=== PATIENT | male | born 1980 | race Caucasian/White ===

== ENCOUNTER 2022-08-19 10:09 | Day surgery (SDC) | payer OTHER, SELFPAY ==
[2022-08-19] VITALS (15 sets, daily range): BP systolic 112–156; BP diastolic 69–108; PULSE 72–98; RESP 14–20; TEMP 36.3–37.8; O2SAT 95–100; BMI 27.1
--- NOTE | 2022-08-19 12:17 | CRLHL7_ITS ---
For Patients: As a result of the Century Cures Act, medical imaging exams and procedure reports are released immediately into your electronic medical record. You may view this report before your referring provider. If you have questions, please contact your health care provider. Indication: Right lower quadrant pain times 12 hours, nausea Technique: Volumetric multidetector CT images of the abdomen and pelvis were obtained after the administration of intravenous contrast. 98 cc Isovue 370 low osmolar intravenous contrast Comparison: CT abdomen and pelvis July 19, 2018 Findings: The lung bases are clear. There is moderate hepatomegaly and hepatic steatosis. There is no focal abnormality. The portal vein is patent. The gallbladder is unremarkable without evidence of radiopaque calculus. There is no significant common biliary ductal dilatation or abrupt cut off. The spleen is normal in enhancement and size. There is mild thickening of the gastric antrum with minimal gastric mucosal hyperemia. The pancreas is normal in enhancement without significant atrophy. The adrenal glands are unremarkable. Cystic changes of the left kidney are appreciated with preserved corticomedullary differentiation. There is moderate stool seen throughout the colon with minimal distal colonic diverticulosis with mild nondistention versus thickening of the sigmoid colon. No overt pericolonic inflammatory changes. Minimal fluid is seen within the central small-bowel commensurate with mild enteritis. There is demonstration of cecal edema at the base of the appendix with a fluid-filled measuring 7.4 millimeters with moderate fluid distention measuring up to 5.7 millimeters. There is no significant mesenteric, retroperitoneal, or pelvic sidewall lymph nodes. The aorta is nonaneurysmal. There is no significant atherosclerotic disease appreciated. The solid pelvic viscera are grossly unremarkable. There is no free fluid or free air. The anterior abdominal wall is intact without significant hernias. The lumbar vertebral body heights are grossly maintained in satisfactory alignment without evidence of displaced fracture, lytic or blastic lesion. Impression: There is demonstration of moderate edema and inflammatory change of the cecum and base of the appendix with a dilated, fluid-filled appendix measuring up to 7.4 millimeters in greatest dimension with approximately 5.7 millimeters of fluid distension and mucosal hyperemia commensurate with likely early appendicitis changes. There is a somewhat decompressed appearing sigmoid colon with questionable mild thickening of the colon wall versus nondistention which may represent low-grade inflammatory change. Please note that all CT scans at this facility use dose modulation, iterative reconstruction, and/or weight-based dosing when appropriate to reduce radiation dose to as low as reasonably achievable. Dictated by Yemi Patel MD @ 08/19/2022 2:48:20 PM (Electronically Signed)
--- NOTE | 2022-08-19 12:21 | ED_ITS ---
HPI - General Adult General Chief complaint: Abdominal Pain Stated complaint: Abdominal Pain Time Seen by Provider: 08/19/22 12:11 Source: patient Mode of arrival: ambulatory Limitations: no limitations History of Present Illness HPI narrative: 42-year-old male coming in today complaining of right lower quadrant abdominal pain that started last night. Pain does not radiate. Movement makes it worse. Lying still makes it better. He feels very nauseated but has not vomited. He did eat a protein bar this morning at around 8:30 a.m. but has not felt hungry. She denies any fevers or chills. He states that he had a bowel movement earlier today and was normal. No blood in his stool or urine. No urinary symptoms such as increased frequency, urgency or dysuria. He denies any intra-abdominal surgeries in the past. He does have a history of ulcerative colitis, her is on injections every 2 months. Related Data Home Medications Medication Instructions Recorded Confirmed calcium carbonate 500 mg-vitamin 1 tab PO DAILY 08/19/22 08/19/22 D3 10 mcg (400 unit) tablet (Oyster Shell Calcium-Vitamin D3) intivial IVPB .every 8 weeks 08/19/22 Allergies Allergy/AdvReac Type Severity Reaction Status Date / Time No Known Drug Allergies Allergy Verified 08/19/22 10:31 Review of Systems Status of ROS: Reports: 10 or more systems reviewed and unremarkable except as noted in History and below PFSH [facility] Social History Smoking Status: Never smoker How often do you have a drink containing alcohol: monthly or less How many standard drinks containing alcohol do you have on a typical day: 1 or 2 AUDIT-C Alcohol total score: 1 Non-prescribed substance use: denies use Exam Narrative: Exam Narrative: Well-nourished well-developed patient in no acute distress. Alert and oriented. Answers questions appropriately. Mood and affect are appropriate. Thoughts are goal oriented and rational. No tangential or magical thinking noted. Patient speaks in full sentences without needing to catch their breath. HEENT: Normocephalic atraumatic. Pupils are equally round reactive to light. Extraocular muscles are intact. Conjunctivae are moist without any icterus noted. Moist mucous membranes. Posterior pharynx is normal. Neck is soft without any lymphadenopathy or thyromegaly. No masses are appreciated. Cardiovascular: Heart is regular rate and rhythm S1 and S2 are present without any murmurs. Lungs: Clear to auscultation bilaterally no wheezes rhonchi or rales are appreciated. Patient takes deep breaths without any discomfort. Abdomen: Soft and nondistended, non tympanic. He does have right lower quadrant tenderness and tenderness at McBurney's point. He has a negative Pickens sign. Mild suprapubic discomfort as well. Normal bowel sounds, no organomegaly appreciated. Extremities: Bilateral lower extremities are without edema. Normal DP and PT pulses. Skin: Well perfused without any obvious rashes. Const: Vital Signs, click to edit/add: Vital Signs - 24 hr 08/19/22 10:27 08/19/22 15:17 Temperature 97.5 F L 98.2 F Pulse Rate [Right Pulse Oximeter] 77 79 Respiratory Rate 16 20 Blood Pressure [Ri ght Upper Arm] 112/69 119/74 Pulse Oximetry 98 99 Oxygen Delivery Me thod Room Air Course Course Hospital Course: IV was established, labs were drawn. CBC was unremarkable. Chemistries were unremarkable. LFTs unremarkable. Urinalysis unremarkable. CRP elevated. Patient proceeded to abdominal CT which did show early appendicitis. Dr. Toribio was contacted and agreed to take the patient to the OR. Vital Signs Vital signs: Initial Vital Signs Temperature 97.5 F L 08/19/22 10:27 Temperature Source Temporal Artery Scan 08/19/22 10:27 Pulse Rate 77 08/19/22 10:27 Respiratory Rate 16 08/19/22 10:27 Blood Pressure 112/69 08/19/22 10:27 Blood Pressure Mean 83 08/19/22 10:27 Blood Pressure Position Sitting 08/19/22 10:27 Pulse Oximetry 98 08/19/22 10:27 Oxygen Delivery Method 08/19/22 10:27 Vital Signs Temperature 97.5 F L 08/19/22 10:27 Pulse Rate 77 08/19/22 10:27 Respiratory Rate 16 08/19/22 10:27 Blood Pressure 112/69 08/19/22 10:27 Pulse Oximetry 98 08/19/22 10:27 Oxygen Delivery Method 08/19/22 10:27 Temperature 98.2 F 08/19/22 15:17 Pulse Rate 79 08/19/22 15:17 Respiratory Rate 20 08/19/22 15:17 Blood Pressure 119/74 08/19/22 15:17 Pulse Oximetry 99 08/19/22 15:17 Oxygen Delivery Method 08/19/22 10:27 Medical Decision Making MDM Narrative Medical decision making narrative: 42-year-old male with appendicitis. Patient will proceed to same-day surgery for management. Lab Data Lab results reviewed: Yes I reviewed the patient's lab results Labs: Lab Results 08/19/22 08/19/22 08/19/22 Range/Units 12:25 12:40 12:40 WBC 10.34 (4.50-11.00) K/uL RBC 5.25 (4.30-5.90) m/uL Hgb 15.4 (13.5-17.5) gm/dL Hct 44.5 (37.0-53.0) % MCV 85 (80-100) fL MCH 29 (26-34) pg MCHC 35 (32-36) gm/dL RDW Coeff of [place] 12.3 (11.5-15.5) % Plt Count 237 (140-440) K/uL Neut % (Auto) 75.0 H (42.0-72.0) % Lymph % (Auto) 16.3 L (20-44) % [place] % (Auto) 7.3 (0.0-11.0) % Eos % (Auto) 1.0 (0.0-7.0) % Baso % (Auto) 0.3 (0.0-3.0) % Neut # (Auto) 7.80 H (1.7-7.0) K/uL Lymph # (Auto) 1.70 (0.90-2.90) K/uL [place] # (Auto) 0.80 (0.00-0.90) K/UL Eos # (Auto) 0.10 (0.00-0.50) K/uL Baso # (Auto) 0.03 (0.00-0.30) K/uL Abs Immat Gran (auto) 0.01 (0.00-0.30) K/uL Sodium (135-149) mmol/L Potassium (3.6-5.1) mmol/L Chloride (96-114) mmol/L Carbon Dioxide (20-32) mmol/L BUN (5-24) mg/dL Creatinine (0.5-1.5) mg/dL Estimated Creat Clear Estimated GFR ml/min Glucose (60-115) mg/dL Lactate (0.5-1.9) mmol/L Calcium (8.4-10.6) mg/dL Total Bilirubin (0.1-1.5) mg/dL Direct Bilirubin (0.0-0.5) mg/dL AST (12-35) U/L ALT (4-50) U/L Alkaline Phosphatase (40-150) U/L C-Reactive Protein (0.5-1.0) mg/dL Total Protein (6.0-8.3) g/dL Albumin (3.3-5.0) g/dL Lipase (23-300) U/L Urine Color Yellow (Yellow) Urine Appearance Clear (Clear) Urine pH 6.0 (5.0-8.5) Ur Specific [place] 1.015 (1.000-1.030) Urine Protein Negative (Negative) Urine Glucose (UA) Negative (Negative) Urine Ketones Negative (Negative) Urine Blood Trace-intact A (Negative) Urine Nitrite Negative (Negative) Urine Bilirubin Negative (Negative) Urine Urobilinogen 0.2 (0.2-1.0) Ur Leukocyte Esterase Negative (Negative) Urine RBC 0-2 (0-2) Urine WBC 0-2 (0-5) Ur Squamous Epith Cells None (None-Few) Urine Bacteria None (None) SARS-CoV-2 (PCR) Negative SARS-CoV-2 (Negative) Influenza Type A (PCR) Negative PCR FLU A (Negative) Influenza Type B (PCR) Negative PCR FLU B (Negative) 08/19/22 08/19/22 Range/Units 12:40 12:40 WBC (4.50-11.00) K/uL RBC (4.30-5.90) m/uL Hgb (13.5-17.5) gm/dL Hct (37.0-53.0) % MCV (80-100) fL MCH (26-34) pg MCHC (32-36) gm/dL RDW Coeff of [place] (11.5-15.5) % Plt Count (140-440) K/uL Neut % (Auto) (42.0-72.0) % Lymph % (Auto) (20-44) % [place] % (Auto) (0.0-11.0) % Eos % (Auto) (0.0-7.0) % Baso % (Auto) (0.0-3.0) % Neut # (Auto) (1.7-7.0) K/uL Lymph # (Auto) (0.90-2.90) K/uL [place] # (Auto) (0.00-0.90) K/UL Eos # (Auto) (0.00-0.50) K/uL Baso # (Auto) (0.00-0.30) K/uL Abs Immat Gran (auto) (0.00-0.30) K/uL Sodium 142 (135-149) mmol/L Potassium 4.0 (3.6-5.1) mmol/L Chloride 101 (96-114) mmol/L Carbon Dioxide 28 (20-32) mmol/L BUN 16 (5-24) mg/dL Creatinine 0.8 (0.5-1.5) mg/dL Estimated Creat Clear 134.72 Estimated GFR 115 ml/min Glucose 79 (60-115) mg/dL Lactate 0.8 (0.5-1.9) mmol/L Calcium 9.5 (8.4-10.6) mg/dL Total Bilirubin 1.0 (0.1-1.5) mg/dL Direct Bilirubin 0.1 (0.0-0.5) mg/dL AST 30 (12-35) U/L ALT 30 (4-50) U/L Alkaline Phosphatase 88 (40-150) U/L C-Reactive Protein 3.0 H (0.5-1.0) mg/dL Total Protein 8.8 H (6.0-8.3) g/dL Albumin 5.2 H (3.3-5.0) g/dL Lipase 19 L (23-300) U/L Urine Color (Yellow) Urine Appearance (Clear) Urine pH (5.0-8.5) Ur Specific [place] (1.000-1.030) Urine Protein (Negative) Urine Glucose (UA) (Negative) Urine Ketones (Negative) Urine Blood (Negative) Urine Nitrite (Negative) Urine Bilirubin (Negative) Urine Urobilinogen (0.2-1.0) Ur Leukocyte Esterase (Negative) Urine RBC (0-2) Urine WBC (0-5) Ur Squamous Epith Cells (None-Few) Urine Bacteria (None) SARS-CoV-2 (PCR) (Negative) Influenza Type A (PCR) (Negative) Influenza Type B (PCR) (Negative) Imaging Data CT scan - abdomen: Attestation: I have reviewed the pertinent imaging results. Radiologist's impression: Findings: The lung bases are clear. There is moderate hepatomegaly and hepatic steatosis. There is no focal abnormality. The portal vein is patent. The gallbladder is unremarkable without evidence of radiopaque calculus. There is no significant common biliary ductal dilatation or abrupt cut off. The spleen is normal in enhancement and size. There is mild thickening of the gastric antrum with minimal gastric mucosal hyperemia. The pancreas is normal in enhancement without significant atrophy. The adrenal glands are unremarkable. Cystic changes of the left kidney are appreciated with preserved corticomedullary differentiation. There is moderate stool seen throughout the colon with minimal distal colonic diverticulosis with mild nondistention versus thickening of the sigmoid colon. No overt pericolonic inflammatory changes. Minimal fluid is seen within the central small-bowel commensurate with mild enteritis. There is demonstration of cecal edema at the base of the appendix with a fluid- filled measuring 7.4 millimeters with moderate fluid distention measuring up to 5.7 millimeters. There is no significant mesenteric, retroperitoneal, or pelvic sidewall lymph nodes. The aorta is nonaneurysmal. There is no significant atherosclerotic disease appreciated. The solid pelvic viscera are grossly unremarkable. There is no free fluid or free air. The anterior abdominal wall is intact without significant hernias. The lumbar vertebral body heights are grossly maintained in satisfactory alignment without evidence of displaced fracture, lytic or blastic lesion. Impression: There is demonstration of moderate edema and inflammatory change of the cecum and base of the appendix with a dilated, fluid-filled appendix measuring up to 7.4 millimeters in greatest dimension with approximately 5.7 millimeters of fluid distension and mucosal hyperemia commensurate with likely early appendicitis changes. There is a somewhat decompressed appearing sigmoid colon with questionable mild thickening of the colon wall versus nondistention which may represent low-grade inflammatory change. Discharge Plan Discharge Patient Disposition: Pending Disposition
--- OUTSIDE RECORDS SUMMARY | 2022-08-19 12:25 | XMS_ITS | Encounter Summary ---
:1980 Author Organization [facility] Address [address] [place] [address] Care Team Providers Name Role Phone Unavailable Primary Care Provider Unavailable Reason for Visit Reason Comments Patient Education Encounter Details Date Type Department Care Team Description 11/13/2021 Clinical Communication Department of Sandy Daniels Education Infusion Therapy in [place], [place] Omar, R.N. [address] [place] [phone] Social History Tobacco Use Types Packs/Day Years Used Date Smoking Tobacco: Never Assessed Sex Assigned at Date Recorded Not on file documented as of this encounter Miscellaneous Notes Telephone Encounter - Regina Daniels M.S.N., R.N. - 11/13/2021 10:37 AM CONTAINER COORDINATOR SUBJECTIVE CHIEF COMPLAINT / REASON FOR CALL Patient Education Information Discussed Adolfo, my name is Omar Mullins, R.N., calling from [facility]. I am calling to share thatur coronavirus nasal swab came back positive for SARS-CoV-2, the virus that causes COVID-19. This means that you have COVID-19 and can spread it to others. You must isolate at home to?keep others safe and prevent the spread of the virus. There are a few COVID-19 treatment options that may be available to you, based on your past medical history and onset of symptoms. I will ask a few questions to determine what treatment options you mayqualify for. ??? Do you have symptoms of COVID-19? Yes, if so what date did they start 11/07/21 ??? Are you taking immunosuppressive treatment related to a solid organ transplant or hematopoietic stem cell transplant, or on anti-CD20 treatment (rituximab, ofatumumab, ocrelizumab, obinutuzumab)? Yes Patient takes Humira and has been on this for about 4 months for Ulcerative Colitis. ??? Are you requiring supplemental oxygen or an increase in oxygen if currently using oxygen therapy? No, If you are eligible for an IV treatment, your vital signs will be taken on the arrival for the infusion center. If you are found to be in need of oxygen due to COVID-19 then you will not be infused with a treatment for COVID-19 rather you will be referred to an urgent care or ED for evaluation ofworsening disease. ??? Have you previously tested positive for COVID-19 within the past 90 days? No Treatment Eligibility: This medication is sotrovimab and it is for the treatment of coronavirus disease 2019 (COVID-19). This medication has been recommended for you after review of your medical records by a multidisciplinary physician team. While most people do feel better in seven days, some people do develop serious respiratory complications which could lead to hospitalizations or even . In the next few minutes, I am going to give you more information about this medication to help you understand the possible risksand benefits of taking a monoclonal antibody infusion. It is your choice to receive a monoclonal antibody infusion or stop at any time. ??? Receiving a monoclonal antibody infusion may benefit certain people with COVID-19. ??? This may decrease your risk for hospitalization by 10% to 3% ??? This may decrease the duration of your symptoms by 2 days (from 8 days to 6 days) ??? You may be feeling well now or not that bad, however, you have been identified as someone who isat risk of developing worse symptoms, and this infusion is designed to prevent that and help you to continue feeling well. What is a monoclonal antibody infusion? These are investigational medicines used for the treatment of COVID-19. It can be used in peoplewho are: o Not in the hospital o Who do not have a new or increased oxygen requirement due to COVID-19 o Who have not previously tested positive for COVID-19 within the last 90 days o Age 12 and older o Have mild or moderate symptoms o Weigh equal or more than 88 pounds o AND who are at high risk for developing severe COVID-19 symptoms or being hospitalized. ??? Monoclonal antibodies are laboratory made proteins that mimic the immune system's ability to fight off harmful pathogens such as viruses. This medication is specifically directed against the COVID-19 spike protein, designed to block the virus' attachment and entry into human cells. I need to let you know that this medication is investigational because it is still being studied. The FDA has approved the use of this medication under an EUA while data is still being collected; but early studies suggest that it reduces the risk of hospitalization. The FDA's Emergency Use Authorization (EUA) has authorized people to receive monoclonal antibody infusions for the treatment of mild COVID-19. [facility] supports this treatment for certain people. Tell your healthcare provider about all of your medical conditions, including if you: ??? Have any allergies ??? Are or plan to become ??? Are or plan to breastfeed ??? Have any serious illnesses ??? Are taking any medications (prescription, zwod-hfb-zrhgksu, vitamins, and herbal products) How will I receive a monoclonal antibody infusion? Monoclonal antibodies are given to you through a vein in your arm over approximately 30 - 60 minutes. You will be observed for 1 hour after the infusion is complete to monitor for side effects. You will receive one dose of the monoclonal antibody infusion by IV infusion. What are the important possible side effects of monoclonal antibodies? The most commonly reported side effects in clinical studies have been nausea, diarrhea, dizziness, headache, itching and vomiting. Serious reactions such as allergic reactions or infusion reactions have occurred but are uncommon. Tell your health care provider right away if you have any of the following signs or symptoms of an allergic reaction: fever, chills, nausea, headache, shortness of breath, low blood pressure, wheezing, swelling of your lips face or throat, rash including hives, itching, muscle aches and dizziness. Because monoclonal antibody infusions are still being studied, not a lot of people have been given monoclonal antibody infusions yet, and it is possible that not all of the risks are known at this time. Serious and unexpected side effects may happen. Specific studies have not been conducted to address the possible risks that a monoclonal antibody infusion could interfere with your body's own ability to fight off a future infection of SARS-CoV-2 and/or whether it could reduce your body's immune response to a vaccine for SARS-CoV-2 . Talk to your healthcare provider if you have any questions including whether the risks of serious SARS-CoV-2 infection outweigh the potential risks of monoclonal antibody infusion. Patients who receive a monoclonal antibody infusion are still eligible for a COVID-19 vaccine. Patients who receive monoclonal antibody therapies are advised to delay COVID vaccination for 90 days after receiving the monoclonal therapy. Some patients have expressed concerns about disrupting their vaccine schedule by accepting the monoclonal therapy. We strongly recommend that patients offered monoclonal therapies not decline treatments due to concerns about interfering with vaccination schedules. The vaccine is not an effective treatment for an acute COVID infection but an infusion of monoclonalantibodies is and existing data shows that the risk of re- infection with COVID-19 within 90 days is low. CDC experts agree that the benefits of monoclonal therapies is greater than the risk of delaying vaccination. We wanted you to know that [facility] is encouraging you to treat the illness you have now, this will help you right away and extermination supervisor while still being eligible for the vaccine. We also strongly encourage you to get your flu vaccine this year once your isolation has ended and you are feeling well. Have you had a COVID-19 vaccine? Yes; if so what date? Lymbix 02/05 & 02/26 & 10/13/21; Thank you for sharing. I am still able to schedule your MAB infusion, but need to make sure you know that your next dose of the COVID-19 vaccine needs to be 90 days after your MAB infusion. I wanted to share with you that if you have completed your COVID 19 vaccine series and then test positive while being symptomatic you are eligible to receive MAB. MAB has been shown to benefit COVID-19 patients who have previously been vaccinated. I am happy to share with you that since August 2020 [facility] has infused over [id number],107 patients with a monoclonal antibody infusion across our [place] sites. I am sharing this because we havenot seen any serious side effects in the patients who choose to receive the infusion. The side effects that we are seeing are similar to patients who choose not to receive the medication at all. Patients have reported to us mild fever, diarrhea, chills for a short while, and/or hives. What other treatment choices are there? Like monoclonal antibody infusions, the FDA may allow for the emergency use of other medicines to treat people with COVID-19. Go to https://www.osjxb59wsrouacgemnrcmgoixh.nih.gov/ for information on the emergency use of other medicines that are not approved by FDA to treat people with COVID- 19. Your healthcare provider may talk with you about clinical trials you may be eligible for. It is your choice to be treated or not to be treated with a monoclonal antibody infusion. Should youdecide not to receive a monoclonal antibody infusion or stop it at any time, it will not change yourstandard medical care. How do I report side effects with monoclonal antibody infusion? Tell your healthcare provider right away if you have any urgent side effects. For non-urgent side effects or side effects that bothers you or does not go away please contact the care team coordinating your COVID care during business hours. This may be your primary care provider, your COVID care team or your remote monitoring nurse team, which ever is applicable after emergency care, if needed, has been reached. Report side effects to FDA MedWatch at www.fda.gov/medwatch, call 7-319-OFC-5982. How can I learn more? Ask your healthcare provider ??? Visit https://www.bipzq58uolgpxvzuwbxymhnxcd.nih.gov/ ??? Contact your local or state public health department Would you like to learn more about what an Emergency Use Authorization (EUA)?Yes; The [place] FDA has made these monoclonal antibody infusions available under an emergency access mechanism calledan EUA. The EUA is supported by a [place] of Health and Human Service (HHS) declaration that circumstances exist to justify the emergency use of drugs and biological products during the COVID-19 pandemic. What is the cost for this medication? The medication is provided to [facility] at no charge and there is no cost of the medication to youthe patient. Any associated costs with the infusion will be billed to the patient's insurance company. [employer] does not want cost to be a barrier to infusion so please let us know at your infusion if you need more information or are worried about cost being a barrier. If you are uninsured or underinsuredyou will still be able to receive this medication free of cost. Medication Interactions Please know that there has been a large review by pharmacists, and this medication is not likely to interfere with any normal medication patients may be taking. This is possible as your body processes this medication differently than standard prescription medications. Given how this medication helps your body it is better to receive this medication as soon as possible if you agree to the infusion. Please know that our team is offering and will provide you this treatment for COVID-19 as part of a larger team that is coordinating your overall care. If you have continued questions after your infusion or your symptoms get worse please reach out to the team coordinating your clinical care, either a COVID-19 focused team or your primary care provider's office. If you have a patient portal please look at your messages as there may be one awaiting your review from the clinical team coordinating your care. Do you agree/consent to receive this infusion? Yes; The following education has been completed in accordance with the FDA Emergency Use Authorization (EUA) requirements: Informed patient/caregiver thatmonoclonal antibody infusions are an unapproved drug that is authorized for use under this EUA. Informed patient/caregiver of alternatives to receiving authorized monoclonal antibody infusions The Fact Sheet for Patients, Parents and Caregivers will be provided to patient/caregiver at the [facility]. They are on day 6 or 7 from symptom onset. They are immune compromised or have received a transplantin the past. We discussed that [facility] recommends they receive treatment to prevent severe complications of COVID-19 and that they are candidates to receive Sotrovimab. If Sotrovimab is not available, Remdesivir is also an option. They are ELIGIBLE and AGREE to treatment with SOTROVIMAB and an order has been placed per nurse protocol. We discussed the risks, benefits and alternatives. They DO NOTmeet any exclusion criteria for Sotrovimab, including no current or recent hospitalization for COVID-19, no new or increasing oxygen requirements, and no hypersensitivity to Sotrovimab. Remote Patient Monitoring: System Calculated MASS Score: Monoclonal Antibody Screening Score (MASS) Total Points Current as of 3 days ago 4 0 - 3 Points: Low Risk 4 - 6 Points: Medium Risk >= 7 Points: High Risk No Change Details This score is used to evaluate patient risk of complications with COVID-19 infection Points Metrics 0 Age: 41 Current as of 3 days ago 0 Has Chronic Respiratory Disease: No Current as of 3 days ago 0 Has Diabetes: No Current as of 3 days ago 4 Patient is Immune Compromised/Transplant Patient: Yes Current as of 3 days ago 0 BMI: Not on file Current as of 3 days ago 0 Has CVD: No Current as of 3 days ago 0 Has Renal Disease (CKD 4 or 5, ESRD w/ Dialysis): No Current as of 3 days ago 0 Has Hypertension: No Current as of 3 days ago 0 : No Current as of 3 days ago Patient has a MASS >/= 4, has symptoms, not on new oxygen or needing an increased amount of oxygen, and has at least 5 days of isolation left.. Yes; You are eligible for a Remote Patient Monitoring program to assist with monitoring your symptoms and vital signs every day from home using a tablet and easy to use equipment. If you are interested in this treatment, a nurse from [facility] will becalling you to give you more information and gather your consent. Would you be interested in proceeding with this? No COVID-19 Isolation Beginning of isolation (day 0) is considered the start of onset of symptoms. Effective 10/18/21, the [facility] now recommends a minimum 5 day isolation for the general population who tests positive for COVID-19 and who are asymptomatic or with symptoms that are resolving (without a fever for 24 hours), followed by 5 days of wearing a mask when around others to minimize the risk of infecting people they encounter. Individuals who are immune compromised should isolate for a minimum of 10 days. An individual must, at a minimum, follow the isolation and quarantine requirements outlined by [facility] public health department. All isolation periods are for a minimum number of days, and patients must still meet criteria of being fever free and having improving symptoms for 24hour prior to ending home isolation. The patient may end home isolation when they meet the following criteria: ??? They have met the minimum days of the recommended isolation period (day 0 is day of symptom onset OR date of positive test if they never had symptoms) ??? They have been afebrile at least 24 hours without the use of fever reducing medications ??? Their symptoms are improving Thank you for your time today. The results of this call will be shared with members of your care team. PLAN Disposition/Recommendation: self-care is appropriate at this time, patient encouraged to call back with questions Information/Education: patient/caller able to teach back Caller agreeable to plan of care: yes The following references were used: nursing clinical judgement and patient education resources: Monoclonal antibody therapy AINER COORDINATOR documented in this encounter Plan of Treatment Not on filedocumented as of this encounter Visit Diagnoses Diagnosis COVID-19 Infection - Primary documented in this encounter Additional Health Concerns Infection Onset Date Last Indicated Resolved Time [id number]: Symptom onset 11/10/2021 11/10/2021 5:35 AM CONTAINER COORDINATOR 11/07/2021 documented as of this encounter
--- OUTSIDE RECORDS SUMMARY | 2022-08-19 12:25 | XMS_ITS | Encounter Summary ---
:1980 Author Organization [facility] Address [address] [place] [address] Care Team Providers Name Role Phone Unavailable Primary Care Provider Unavailable Reason for Visit Episode Based Medications (Routine) - Closed Specialty Diagnoses / Procedures Referred By Contact Refer red To Contact Diagnoses COVID-19 Infection Jose Velarde [facility] Inf Jose Cruz Keller M.D. [address] [place] [address] [place], [place] [phone] Referral ID Status Reason Start Date Expiration Date Visits Requ ested Visits Authorized [id number] Closed 11/13/2021 11/13/2022 1 1 Encounter Details Date Type Department Care Team Description 11/14/2021 Infusion Department of Infusion Jose Velarde [facility]-[place] Infection Therapy in [facility] Castillo Keller (Primary Dx) [address] [place] [phone] Social History Tobacco Use Types Packs/Day Years Used Date Smoking Tobacco: Never Assessed Sex Assigned at Date Recorded Not on file documented as of this encounter Last Filed Vital Signs Vital Sign Reading Time Taken Comments Blood Pressure 114/66 11/14/2021 11:31 AM LEARNING AND DEVELOPMENT OFFICER Pulse 68 11/14/2021 11:31 AM LEARNING AND DEVELOPMENT OFFICER Temperature 36.8 ??C (98.2 ??F) 11/14/2021 11:31 AM LEARNING AND DEVELOPMENT OFFICER Respiratory Rate 16 11/14/2021 11:31 AM LEARNING AND DEVELOPMENT OFFICER Oxygen Saturation 100% 11/14/2021 11:31 AM LEARNING AND DEVELOPMENT OFFICER Inhaled Oxygen Concentration - - Weight - - Height - - Body Mass Index - - documented in this encounter Plan of Treatment Not on filedocumented as of this encounter Visit Diagnoses Diagnosis COVID-19 Infection - Primary documented in this encounter Administered Medications Inactive Administered Medications - up to 3 most recent administrations Medication Order MAR Action Action Date Dose Rate Site NaCl 0.9% infusion New Bag 11/14/2021 12:00 PM 160 mL/hr 160 mL/hr 10-250 mL/hr, intravenous, LEARNING AND DEVELOPMENT OFFICER As needed, Post Medications (Hazardous/Low Fluid Volume), Starting on 11/14/21 at 1127, Infuse at the same rate as the medication until tubing cleared of medication, then discard. sodium chloride 0.9 % injection 3 mL Given 11/14/2021 12:12 PM LEARNING AND DEVELOPMENT OFFICER 3 mL 3 mL, intra-catheter, As needed, line care, Starting on Mon11/14/21 at 1127, Prior to and following infusion and between multiple consecutive infusions. Given 11/14/2021 11:38 AM LEARNING AND DEVELOPMENT OFFICER 3 mL sotrovimab 500 mg IVPB in NaCl 0.9% 58 mL 500 New Bag 11/14/19 500 mg 116 mL/hr mg 11:39 AM LEARNING AND DEVELOPMENT OFFICER 500 mg, intravenous, at 116 mL/hr, Administer over 30 Minutes, Once, On 11/14/21 at 1130, For 1 dose, Patient/caregiver factsheet: https://www.fda.gov/media/449467/download *Refrigerate* Do not shake. Prior to the infusion, gently rock the infusion bag back and forth by hand 3 to 5 times. Do not invert the infusion bag. Avoid forming air bubbles. Nursing to attach and prime infusion set with in-line or add-on 0.2 micron polyethersulfone (PES) filter. Flush with NaCl 0.9% after infusion., Authorizing Prescriber Service: Daphne, Criteria: Adults and pediatric patients (age 12-17 years and weighing at least 40 kg), Indication of use: Outpatient or observation patient: Mild to moderate COVID-19 treatment, AND meeting at least one of the following: Immunosuppressive disease or immunosuppressive treatment documented in this encounter Additional Health Concerns Infection Onset Date Last Indicated Resolved Time [id number]: Symptom onset 11/10/2021 11/10/2021 5:35 AM LEARNING AND DEVELOPMENT OFFICER 11/07/2021 documented as of this encounter
--- OUTSIDE RECORDS SUMMARY | 2022-08-19 12:25 | XMS_ITS | Encounter Summary ---
:1980 Author Organization [facility] Address [address] [place] [id number] Care Team Providers Name Role Phone Unavailable Primary Care Provider Unavailable Reason for Visit Reason Comments Patient Education Encounter Details Date Type Department Care Team Description 11/13/2021 Clinical Communication Department of Sandy Daniels Infusion Therapy in [place], [place] Omar, R.N. [address] [place] [address] Social History Tobacco Use Types Packs/Day Years Used Date Smoking Tobacco: Never Assessed Sex Assigned at Date Recorded Not on file documented as of this encounter Miscellaneous Notes Telephone Encounter - Regina Daniels M.S.N., R.N. - 11/13/2021 10:12 AM CHEMICAL PLANT OPERATOR SUPERVISOR Attempted to contact patient to discuss potential treatment options for COVID- 19; Left Message for patient to call the Infusion Therapy Center at [phone]. ICAL PLANT OPERATOR SUPERVISOR documented in this encounter Plan of Treatment Not on filedocumented as of this encounter Visit Diagnoses Not on filedocumented in this encounter Additional Health Concerns Infection Onset Date Last Indicated Resolved Time [id number]: Symptom onset 11/10/2021 11/10/2021 5:35 AM CHEMICAL PLANT OPERATOR SUPERVISOR 11/07/2021 documented as of this encounter
--- OUTSIDE RECORDS SUMMARY | 2022-08-19 12:25 | XMS_ITS | Encounter Summary ---
:1980 Author Organization [facility] Address [address] [place] [address] Care Team Providers Name Role Phone Unavailable Primary Care Provider Unavailable Encounter Details Date Type Department Care Team Description 05/23/2017 Hospital Encounter [facility]X [facility] Ania John M.D., M.P.H. [address] [place] [address] (Wo rk) Social History Tobacco Use Types Packs/Day Years Used Date Smoking Tobacco: Never Assessed Sex Assigned at Date Recorded Not on file documented as of this encounter Plan of Treatment Not on filedocumented as of this encounter Visit Diagnoses Not on filedocumented in this encounter
--- OUTSIDE RECORDS SUMMARY | 2022-08-19 12:25 | XMS_ITS | Clinical Summary ---
:1980 Author Organization [facility] [place] [address] Care Team Providers Name Role Phone Pcp, No Primary Care Provider Unavailable Allergies No known active allergies Medications Medication Sig Dispensed Refills Start Date End Date Status adalimumab 40 mg/0.4 Every 2 Weeks 0 Active mL sykt balsalazide (COLAZAL) Take 3 Capsules by 0 1 Active 750 mg capsule mouth 2 times daily. dicyclomine (BENTYL) TAKE ONE TABLET BY 0 11/04/2021 Active 20 mg tablet MOUTH TWICE A DAY (FIRST THING IN THE MORNING AND BEFORE BED) predniSONE (DELTASONE) TAKE 8 TABLETS BY 0 2 Active 5 mg tablet MOUTH DAILY FOR 7 DAYS, THEN 6 TABLETS DAILY FOR 7 DAYS, THEN 4 TABLETS DAILY FOR 7 DAYS, THEN DECREASE BY ONE TABLET ANITHA Active Problems Not on file Immunizations Name Administration Dates Next Due AMB Influenza, IIV3 (Age >=3 years)(Flu Clinic Only) 011, 08/27/2010 Influenza, IIV3 (Age >=3 years) 09/03/2007 Social History Tobacco Use Types Packs/Day Years Used Date Never Smoker Smokeless Tobacco: Never Used Tobacco Cessation: Counseling Given: Yes Alcohol Use Standard Drinks/Week Comments Yes 0 (1 standard drink = 0.6 oz pure alcoho l) Sex Assigned at Date Recorded Not on file Obstetrics History Last Filed Vital Signs Vital Sign Reading Time Taken Comments Blood Pressure 106/58 12/16/2021 9:12 AM 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 manual cu ff Pulse 75 12/16/2021 9:12 AM 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 Temperature 36.8 ??C (98.2 ??F) 07/22/2009 6:27 PM CDT Respiratory Rate 16 07/22/2009 6:27 PM CDT Oxygen Saturation 99% 12/16/2021 9:12 AM 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 Inhaled Oxygen Concentration - - Weight 84.4 kg (186 lb) 12/16/2021 9:12 AM 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 Height - - Body Mass Index - - Plan of Treatment Health Maintenance Due Date Last Done Comments Tdap 1993 Depression screening for age 12+ 1994 BMI (ht and wt on same day) for age 0907/16/2000 18+ Hepatitis C screening for age 18-79 2000 Tetanus booster 2002 Lipids for age 35-44 2017 COVID-19 vaccine series (4 - Booster 12/08/2021 10/13/2021, 02/26/2021, for Pfizer series) 02/05/2021 Influenza for age 9-49 06/23/2022 08/30/2011, 08/27/2010, 09/03/2007 Results Not on filefrom Last 3 Months Insurance Payer Benefit Plan / Subscriber ID Effective Dates Phone Addre ss Type Group WC WORKERS COMP WC ROSE [id number] 2020-Prese [address] [place] [address] [facility] [id number] 2021-Presen [address] [place] [address] Ajith Shelby Workers Comp Self 1980 [address] (Home) [place] [facility] [place] [address] Care Teams Industrial Eng Relationship Specialty Start Date End Date Pcp, No PCP - General 12/03/15 .
--- OUTSIDE RECORDS SUMMARY | 2022-08-19 12:25 | XMS_ITS | Clinical Summary ---
:1980 Author Organization [facility] Address [address] [place] [address] Care Team Providers Name Role Phone Unavailable Primary Care Provider Unavailable Source Comments Patient records contain information from all sites at [facility]. For routine questions regarding patient records, call [phone] during business hours, M-F 8:00 AM - 5:00 PM Central Time. Record requests for emergency care only can be directed to [phone] at any time.[facility] Allergies No known active allergies Medications Medication Sig Dispensed Refills Start Date End Date Status dicyclomine (BENTYL) TAKE ONE TABLET BY 0 11/08/2021 Active 20 mg tablet MOUTH TWICE A DAY (FIRST THING IN THE MORNING AND BEFORE BED) Anton,CF, Pen 40 0 09/23/2021 A ctive mg/0.4 mL injection Active Problems Problem Noted Date COVID-19 Infection 11/13/2021 Immunizations Name Administration Dates Next Due DTP 05/23/1998, 02/02/1986, 01/25/1983, 05/1983, 1980 DTaP (Infanrix, [employer]) 01/16/2008 HepB, Unspecified 09/06/2001, 04/05/2001, 03/08/2001 Influenza, Unspecified 09/03/2007, 08/12/2005 MMR 02/07/1995, 10/21/1983 Social History Tobacco Use Types Packs/Day Years Used Date Smoking Tobacco: Never Assessed Sex Assigned at Date Recorded Not on file Last Filed Vital Signs Vital Sign Reading Time Taken Comments Blood Pressure 114/66 11/14/2021 11:31 AM SOCIAL WORKER PALLIATIVE CARE Pulse 68 11/14/2021 11:31 AM SOCIAL WORKER PALLIATIVE CARE Temperature 36.8 ??C (98.2 ??F) 11/14/2021 11:31 AM SOCIAL WORKER PALLIATIVE CARE Respiratory Rate 16 11/14/2021 11:31 AM SOCIAL WORKER PALLIATIVE CARE Oxygen Saturation 100% 11/14/2021 11:31 AM SOCIAL WORKER PALLIATIVE CARE Inhaled Oxygen Concentration - - Weight - - Height - - Body Mass Index - - Plan of Treatment Health Maintenance Due Date Last Done Comments HIV Screening 1980 Hepatitis C Screening 1980 Lipid (Cholesterol) 1980 Screening Pneumococcal vaccine (0-64 1988 years) (1 - PCV) Depression Screening 10/23/2021 (Annual PHQ-2) COVID-19 Vaccine (4 - 12/08/2021 10/13/2021, 02/26/2021, Booster for Pfizer series) 02/05/2021 Influenza Vaccine (#1) 2022 10/02/2021, 08/26/2020, 08/30/2011, Additional history exists DTaP,Tdap,and Td Vaccines 03/22/2028 03/22/2018, 01/16/2008 , (8 - Td or Tdap) 01/16/2008, Additional history exists Hepatitis B Vaccines Completed 09/06/2001, 09/06/2001, 04/05/2001, Additional history exists HPV Vaccines Aged Out No longer eligib le based on patient 's age to complete this topic Insurance Payer Benefit Plan / Subscriber ID Effective Phone Address T ype Group Dates [facility] [id number] 2021-Pres [phone] [address] [employer] [phone] [place] [address]
[2022-08-19 12:46] LABS: Lactate* 0.8 mmol/L (0.5-1.9)
[2022-08-19 12:48] LABS: Appearance Urine Clear (Clear); Basophils Absolute Auto 0.03 K/uL (0.00-0.30); Basophils Percent Auto 0.3 % (0.0-3.0); Bilirubin Urine Negative (Negative); Blood Urine Trace-intact (Negative); Color Urine Yellow (Yellow); Glucose Urine Negative (Negative); Hematocrit 44.5 % (37.0-53.0); Hemoglobin* 15.4 gm/dL (13.5-17.5); Immature Granulocytes Abs Auto 0.01 K/uL (0.00-0.30); Ketones Urine Negative (Negative); Leukocyte Esterase Urine Negative (Negative); Lymphocytes Percent Auto 16.3 % (20-44); Mean Corpuscular HGB Conc 35 gm/dL (32-36); Mean Corpuscular Hemoglobin 29 pg (26-34); Mean Corpuscular Volume 85 fL (80-100); Monocytes Percent Auto 7.3 % (0.0-11.0); Nitrite Urine Negative (Negative); Platelet Count* 237 K/uL (140-440); Protein Urine Negative (Negative); RDW Coefficient of Variation % 12.3 % (11.5-15.5); Red Blood Count 5.25 m/uL (4.30-5.90); Specific Gravity Urine 1.015 (1.000-1.030); Urobilinogen Urine 0.2 (0.2-1.0); White Blood Count* 10.34 K/uL (4.50-11.00)
[2022-08-19 12:56] LABS: RBC Urine 0-2 (0-2); WBC Urine 0-2 (0-5)
[2022-08-19 12:57] LABS: Slide Review Reflex No
[2022-08-19 13:04] LABS: Albumin* 5.2 g/dL (3.3-5.0); Chloride* 101 mmol/L (96-114)
[2022-08-19 13:05] LABS: Sodium* 142 mmol/L (135-149)
[2022-08-19 13:07] LABS: Creatinine* 0.8 mg/dL (0.5-1.5); Est. Creatinine Clearance* 134.72; Estimated Glomerular Filt Rate 115 ml/min
[2022-08-19 13:08] LABS: Alanine Aminotransferase* 30 U/L (4-50); Alkaline Phosphatase* 88 U/L (40-150); Aspartate Amino Transferase* 30 U/L (12-35); Bilirubin Direct* 0.1 mg/dL (0.0-0.5); Blood Urea Nitrogen* 16 mg/dL (5-24); Calcium* 9.5 mg/dL (8.4-10.6); Carbon Dioxide* 28 mmol/L (20-32); Glucose* 79 mg/dL (60-115); Lipase* 19 U/L (23-300); Total Protein* 8.8 g/dL (6.0-8.3)
[2022-08-19 13:29] LABS: PCR FLU A Negative PCR FLU A (Negative); PCR FLU B Negative PCR FLU B (Negative)
[2022-08-19 13:46] LABS: SARS PCR* Negative SARS-CoV-2 (Negative)
--- NOTE | 2022-08-19 15:21 | PM.GSHP ---
History of Present Illness History of Present Illness Date Seen: 08/19/22 Chief complaint: Abdominal Pain Narrative: Ajith Shelby is a 42 year old male With history of ulcerative colitis presented to the emergency room with right lower quadrant abdominal pain. Patient states that the pain started yesterday. The pain was periumbilical and initially sharp. Then today the pain migrated to the right lower quadrant and was more dull. Patient had nausea but no vomiting. He was not passing gas today. Patient has a history of ulcerative colitis. This has been maintained on Entyvio every 8 weeks. His last injection was 1.5 weeks ago. Patient's symptoms prior to starting treatment were bloody diarrhea And urgency but not much of abdominal pain. Patient had a colonoscopy and flexible sigmoidoscopy. He was told that his ulcerative colitis is mostly on the left side. in the emergency room patient was found to have a normal WBC of 10 with elevated CRP. An abdominal CT was obtained that showed wall enhancing appendix with inflammation near the appendiceal base. This inflammation was extending to the cecum with no evidence of surrounding phlegmon or an abscess. This was consistent with an early appendicitis. Review of Systems Narrative: General: no fevers HENT: no problems swallowing CV: no shortness of breath Resp: no cough GI: No nausea, vomiting, abdominal pain : no dysuria, no increased urinary frequency, no hematuria Skin: no new rashes Musculoskeletal: no back pain Neuro: no muscle weakness Psyche: no depression, no anxiety PFSH PFSH Social History Smoking Status: Never smoker How often do you have a drink containing alcohol: monthly or less How many standard drinks containing alcohol do you have on a typical day: 1 or 2 AUDIT-C Alcohol total score: 1 Non-prescribed substance use: denies use Meds Home Medications and Allergies Home Medications Medication Instructions Recorded Confirmed Type calcium carbonate 500 mg-vitamin 1 tab PO DAILY 08/19/22 08/19/22 History D3 10 mcg (400 unit) tablet (Oyster Shell Calcium-Vitamin D3) intivial IVPB .every 8 weeks 08/19/22 History Allergies Allergy/AdvReac Type Severity Reaction Status Date / Time No Known Drug Allergies Allergy Verified 08/19/22 10:31 Exam Narrative: Exam Narrative: General appearance: Alert, cooperative, and in no distress Pulmonary: Chest symmetric, lungs clear bilaterally Cardiovascular Heart: Regular rate and rhythm, S1, S2, no murmurs/rubs/gallops Gastrointestinal Abdominal: soft, not distended, tender to percussion and to palpation in the right lower quadrant with rebound tenderness. Skin: Normal skin color, texture, and turgor. No rashes or lesions. Psychiatric: Alert, cooperative, normal affect. Const: Vital Signs, click to edit/add: Vital Signs - 24 hr 08/19/22 10:27 08/19/22 15:17 Temperature 97.5 F L 98.2 F Pulse Rate [Right Pulse Oximeter] 77 79 Respiratory Rate 16 20 Blood Pressure [Ri ght Upper Arm] 112/69 119/74 Pulse Oximetry 98 99 Oxygen Delivery Me thod Room Air Assessment and Plan Assessment and plan (1) Acute appendicitis: Status: Acute Plan 42-year-old male presents with abdominal pain that is most likely due to acute appendicitis. I discussed with the patient and his who is a nurse in our same-day surgery his laboratory and imaging findings. Although, his white count is normal, his CRP is elevated. His abdominal CT shows a prominent appendix with majority of inflammation located near the appendiceal base and extending into the cecum. Patient's ulcerative colitis symptoms were different and his ulcerative colitis was located on the left side. I think the most reasonable explanation for his right lower quadrant abdominal pain is an early acute appendicitis. I recommended to proceed with laparoscopic appendectomy. The procedure was discussed in detail. The risks associated procedure including infection, bleeding, injury to intra-abdominal organs, and exposure to COVID were all discussed with the patient and he agreed to proceed.
[2022-08-19] MEDS: LACTATED RINGERS 1000 ML 1,000 ML 100 ML IV ×2 (15:28→16:15)
[2022-08-19] MEDS: MEPERIDINE 25 MG/ML INJ 12.5 MG IVP ×2 (15:37→16:57)
[2022-08-19] MEDS: PIPERACILLIN/TAZOBACTAM 3.375 GM INJ IVPB (15:37)
[2022-08-19] MEDS: LIDOCAINE 0.5%-EPI 1:200,000 50 ML VIAL INJECTION (16:20)
[2022-08-19] MEDS: BUPIVACAINE 0.5% 30 ML INJECTION (16:20)
--- NOTE | 2022-08-19 16:34 | P.NB_ITS ---
Nerve Block Nerve Block Time Seen by Provider: 16:30 Date Seen: 08/19/22 Type of block requested by surgeon for post-operative analgesia: TAP Side: bilateral Time out performed: Yes Verification of patient name: Yes Verification of date of : Yes Site marking: site marked Name of person performing procedure: Jose David Bustillo Continuous monitoring Was continuous monitoring of O2 sat, B/P, groundwater monitoring technician, recorded every 15 minutes?: Yes Procedure Checklist: sterile prep, needles and gloves Ultrasound guided. Images saved: Yes Medications given in 5ml increments after negative aspiration: Marcaine %: 0.25 mL: 30 Needle gauge: 20 and Exparel mL: 10 Needle gauge: 20 Patient tolerated procedure well: Yes Additional comments: Injected in 5ml increments after negative aspiration Block Charges Block Charge (with Pro Fee): TAP Bilateral Use of Ultrasound Machine for Block: Yes- US Guidance/pain block
--- NOTE | 2022-08-19 16:37 | P.GSOP_ITS ---
Operative Note Date of procedure: 08/19/22 Type of Procedure: 1. Laparoscopic appendectomy. Procedure Description: After discussing the risks and benefits of the procedure, the patient signed informed consent.? The operative site was marked and the patient was brought to the operating room and placed on the operating table in supine position.? Care was taken to pad the patient's pressure points.?? The patient was then intubated by anesthesia.?? The operative site was then prepped and draped in the usual sterile fashion.? A time-out was then performed. A 5-mm laparoscopy port was placed in the left upper quadrant guided by a 5-mm laparoscope placed into a translucent trochar. Passage through the layers of the abdominal wall was visualized with the laparoscope. A pneumoperitoneum was established. A 30-degree 5-mm laparoscope was advanced into the abdomen. The abdomen was briefly surveyed, and there was no evidence of diffuse peritonitis. A 12-mm port and a 5-mm port were placed suprapubically under direct visualization by laparoscope. Left upper quadrant entrance port was then examined intraabdominally by placing the camera through the left lower quadrant port and no intraabdominal injury was seen. The patient was placed in Trendelenburg position, allowing the abdominal contents to shift cephalad. The small bowel was moved toward the midline in the abdomen and this allowed for identification of the appendix. The appendix appeared to be dilated with appendiceal base appearing hyperemic and dilated. The cecum adjacent to the base of the appendix was also hyperemic. There was a focal area of necrosis at the base of the appendix with no evidence of perforation. The appendix was grasped and dissected from the peritoneum using Harmonic scalpel. The appendiceal mesentery was skeletonized and the appendiceal artery was identified. The appendiceal artery was then clipped with two 5 mm clips on the patient's side and a single clip on the specimen side and divided with Harmonic scalpel. The appendiceal base was then further cleared from the adjacent fat with Harmonic scalpel. A 60 vascular load Endo-ROSAS stapler was advanced through the 12-mm port into the abdomen and appendix was stapled off at its base just proximal to the area of focal necrosis. The appendix was then placed in an endoscopic retrieval bag and extracted from the abdomen through the 12-mm port. The abdomen was surveyed for hemostasis. And no bleed ing was seen. The 12-mm port was withdrawn and the fascial defect was closed with a figure of eight 0-0 Vicryl stitch. The 5-mm port was removed under direct visualization. The left upper quadrant port was used to evacuate the pneumoperitoneum and then withdrawn. The skin incisions were closed with 4-0 monocryl. Steri-Strips were applied over the incisions. All counts were correct at the end of the case. The patient tolerated this procedure well and was transferred to PACU in stable condition. ? Findings: Acute appendicitis with a focal area of necrosis was no evidence of perforation. Anesthesia: GETA Surgeon: Barron Blevins MD Estimated blood loss (mL): 5 Condition: stable Disposition: PACU
--- NOTE | 2022-08-19 16:45 | W.ANESCHARGE ---
Anesthesia Charges Start Date/Time Anesthesia Start Date: 08/19/22 Anesthesia Start Time: 15:28 Stop Date/Time Anesthesia Stop Date: 08/19/22 Anesthesia Stop Time: 16:41 Summary Emergency: Yes
[2022-08-19] MEDS: LACTATED RINGERS 1000 ML 1,000 ML 75 ML IV (17:33)
[2022-08-19] MEDS: ONDANSETRON 2 MG/ML inj 4 MG IVP (17:37)
[2022-08-19] MEDS: METOCLOPRAMIDE HCL 5 MG/ML INJ 10 MG IVP (17:38)
[2022-08-19] MEDS: ACETAMINOPHEN 325 MG TABLET PO (17:51)
--- NOTE | 2022-08-19 18:02 | PC.NURSE ---
Pt came to Floor @1700. Pain under control Zofran given for mild nausea. No emesis. Afebril. VSS. Dressing CDI. Advancing diet as tolerated.
--- NOTE | 2022-08-19 21:55 | PC.NURSE ---
Pt discharged with spouse @ 1900. No N/V. Pain controlled. Ambulating. VSs Wounds CDI.
== END 2022-08-19 19:00 | disposition home or self-care (01) ==
LOC: ED 15:23 → SS 15:47 → MEDSURG 17:14
PROVIDERS: Emergency Provider Family Medicine; PCP Internal Medicine; Visit Provider Surgery
PROC: 0DTJ4ZZ Resection of Appendix, Percutaneous Endoscopic Approach (ICD-10-PCS; CPT 44970; principal; 2022-08-19 15:15)
DX: K35.80 Unspecified acute appendicitis (principal); R10.31 Right lower quadrant pain
CPT/HCPCS: 44970; 00840; 36415; 64488; 74177; 76942; 80048; 80076; 81001; 83605; 83690; 85025; 86140; 87086; 87631; 88304; 93005; 99140; 99284; 99285; A9270; J0330; J1100; J2175; J2250; J2405; J2543; J2704; J2710; J2765; J3010; J3490; J7120; Q9967

== ENCOUNTER 2024-10-01 15:12 | Outpatient (CLI) | payer OTHER, SELFPAY | END 2024-10-01 15:13 | disposition home or self-care (01) | PROVIDERS: PCP Internal Medicine; Visit Provider Internal Medicine | DX: Z13.6 Encounter for screening for cardiovascular disorders (principal); Z13.9 Encounter for screening, unspecified | CPT/HCPCS: 80053; 80061 ==

== ENCOUNTER 2025-03-08 17:37 | Emergency (ER) | payer OTHER, SELFPAY ==
[2025-03-08 17:40] VITALS: BP 138/78; PULSE 74; RESP 18; TEMP 37.3; O2SAT 99; BMI 25.8
[2025-03-08] MEDS: LIDOCAINE/EPINEP/TETRACAINE 3 ML GEL..ML. TOPICAL (18:22)
--- NOTE | 2025-03-08 18:29 | ED.WOUNDLAC ---
HPI - Wound/Laceration General Date Seen: 03/08/25 Chief Complaint: Laceration/Wound Stated Complaint: Left hand laceration Time Seen by Provider: 03/08/25 17:52 Source: patient Mode of arrival: ambulatory Limitations: no limitations History of Present Illness HPI narrative: Patient is a 44-year-old male presenting for laceration to his left home. Laceration is in his mid hypothenar eminence and wraps around lateral aspect of the palm. He has full range of motion of his finger and denies any numbness. Denies any other injuries. States he was doing some woodworking when the chisel slipped and cutting him in the hand. Bleeding was controlled at home. This occurred about 20 minutes prior to arrival. Related Data Home Medications ?Medication ?Instructions ?Recorded ?Confirmed intivial IVPB .every 8 weeks 08/19/22 10/01/24 Previous Rx's ?Medication ?Instructions ?Recorded tadalafil 5 mg tablet (Cialis) 5 mg PO QDAY #30 tabs 10/25/24 Allergies Allergy/AdvReac Type Severity Reaction Status Date / Time No Known Drug Allergies Allergy Verified 03/08/25 17:45 [facility] Medical History (Updated 03/08/25 @ 18:53 by Eran Peters, ) Screening due ?Z13.9 - Encounter for screening, unspecified (ICD-10) Erectile dysfunction ?N52.9 - Male erectile dysfunction, unspecified (ICD-10) 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 (ICD-10) Surgical History (Updated 09/16/24 @ 14:52 by Reba Smith) History of laparoscopic appendectomy (08/19/22) ?Z90.49 - Acquired absence of other specified parts of digestive tract (ICD-10) History of vasectomy ?Z98.52 - Vasectomy status (ICD-10) History of tenotomy ?Z98.890 - Other specified postprocedural states (ICD-10) Family History (Updated 09/16/24 @ 14:49 by Reba Smith) Mother Breast cancer, Onset Age: 47 IBS (irritable bowel syndrome) Maternal Grandfather Diabetes, Onset Age: 75 Social History (Updated 10/01/24 @ 15:45 by Kathryn Li ~ CTA) What is your current living situation?: I presently have a place to live Problems where you live: no known problems In the past 12 months, utilities in danger of being shut off: no In past 12 months, lack of transportation kept you from medical appts, meetings, work, or getting things needed for daily living: no In the past 12 mos, have been you worried that your food would run out before you had money to buy more?: never true In the past 12 mos, the food you bought just didn't last and you didn't have money to buy more?: never true Smoking Status: Never smoker How often do you have a drink containing alcohol: monthly or less How many standard drinks containing alcohol do you have on a typical day: 1 or 2 AUDIT-C Alcohol total score: 1 Non-prescribed substance use: denies use How often does anyone, including family, friends and others, physically hurt you: never How often does anyone, including family, friends and others, insult or talk down to you: never How often does anyone, including family, friends and others, threaten you with harm: never How often does anyone, including family, friends and others, scream or curse at you: never Exam Narrative: Exam Narrative: Const: Well-nourished, Well-developed, in no distress Eyes: PERRL, no conjunctival injection, and symmetrical lids HENT: Atraumatic external nose and ears. Moist mucous membranes. MSK:Extremities w/o deformity, Normal Active ROM Skin: 2 cm laceration to the left hypothenar eminence going to the lateral aspect of the hand. Neuro: Normal Muscle tone, No focal neurological deficits. Psych: Awake, Alert, & Oriented x3. Appropriate mood and affect. Const: Vital Signs, click to edit/add: Vital Signs - 24 hr 03/08/25 17:40 Temperature 99.2 F Pulse Rate [Right Pulse Oximeter] 74 Respiratory Rate 18 Blood Pressure [Ri ght Upper Arm] 138/78 Pulse Oximetry 99 Oxygen Delivery Me thod Room Air Course Vital Signs Vital signs: Initial Vital Signs Temperature 99.2 F 03/08/25 17:40 Temperature Source Temporal Artery Scan 03/08/25 17:40 Pulse Rate 74 03/08/25 17:40 Pulse Rhythm Regular 03/08/25 17:40 Pulse Strength 3+ Normal 03/08/25 17:40 Respiratory Rate 18 03/08/25 17:40 Blood Pressure 138/78 03/08/25 17:40 Blood Pressure Mean 98 03/08/25 17:40 Blood Pressure Position Sitting 03/08/25 17:40 Pulse Oximetry 99 03/08/25 17:40 Oxygen Delivery Method Room Air 03/08/25 17:40 Vital Signs Temperature 99.2 F 03/08/25 17:40 Pulse Rate 74 03/08/25 17:40 Respiratory Rate 18 03/08/25 17:40 Blood Pressure 138/78 03/08/25 17:40 Pulse Oximetry 99 03/08/25 17:40 Oxygen Delivery Method Room Air 03/08/25 17:40 Temperature 99.2 F 03/08/25 17:40 Pulse Rate 74 03/08/25 17:40 Respiratory Rate 18 03/08/25 17:40 Blood Pressure 138/78 03/08/25 17:40 Pulse Oximetry 99 03/08/25 17:40 Oxygen Delivery Method Room Air 03/08/25 17:40 Medications Administered Medications: Discontinued Medications Generic Name Dose Route Start Last Admin Trade Name Freq PRN Reason Stop Dose Admin Lidocaine/Epinephrine/Tetracaine 3 ml 03/08/25 18:17 03/08/25 18:22 Lidocaine/Epinep/Tetracaine 3 Ml Gel..Ml. TOPICAL 03/08/25 18:18 3 ml ONCE ONE Administration MDM - Wound/Laceration MDM Narrative Medical decision making narrative: Patient is a 44-year-old male presenting for laceration to his left palm. No foreign body seen in wound. Used let to anesthetize the area. Thoroughly cleaned out the wound. Four sutures were placing tolerate this well. Last tetanus was in 2018. Wound appears clean and I do not believe repeat tetanus is necessary. I do not believe antibiotics are necessary at this time. Will be discharged. He is agreeable to this plan Discharge Plan Discharge Clinical Impression: Laceration Patient Disposition: Home, Self-Care Condition: Stable Instructions: Laceration (ED) Additional Instructions: Follow-up with your primary care provider or urgent care in the next 7 to 10 days to have the 4 sutures removed. For next 6 months, once sutures are removed, whenever you go outside put a dab of sunscreen over the laceration site to improve scar appearance. Topical antibiotics are not necessary at this time. Patient can shower but do not submerge the laceration until sutures are removed. You may see some redness around the area tomorrow. That can be normal. If the redness starts to spread or develops pain or any discharge from the wound return for re-evaluation. Prescriptions: No Action intivial IVPB .every 8 weeks Patient Comments: unsure of the dose tadalafil [Cialis] 5 mg tablet 5 mg PO QDAY Qty: 30 5RF Rx Instructions: Generic Follow Up/Referrals: Jay Kumar MD [Primary Care Provider] - Stand Alone Forms: [facility] Info Instructions Procedures Laceration Left palm: Name of person performing procedure: Eran Peters Site: hand Side (If applicable): left Size (cm): 2 Description: linear and clean Depth: simple, single layer Local Anesthetic: other anesthetic (LET) Pre-repair: wound explored, irrigated extensively and deep structures intact Skin layer closed with: nylon Size (cm): 4-0 Number of sutures: 4 Technique: simple, interrupted
--- OUTSIDE RECORDS SUMMARY | 2025-03-09 17:36 | XMS_ITS | Clinical Summary ---
Author Organization [facility] Address [address] [place] [address] Care Team Providers Care Typesetting Machine Tender Name Role Phone Pcp, No Primary Care Provider Unavailabl e Allergies No known active allergies Medications adalimumab 40 mg/0.4 mL sykt Every 2 Weeks A ctive balsalazide (COLAZAL) 750 mg capsule Take 3 Capsules by mouth 2 times daily. 06/29/2021 Active dicyclomine (BENTYL) 20 mg tablet TAKE ONE TABLET BY MOUTH TWICE A DAY (FIRST THING IN THE MORNING AND BEFORE BED) 11/04/2021 Active predniSONE (DELTASONE) 5 mg tablet TAKE 8 TABLETS BY MOUTH DAILY FOR 7 DAYS, THEN 6 TABLETS DAILY FOR 7 DAYS, THEN 4 TABLETS DAILY FOR 7 DAYS, THEN DECREASE BY ONE TABLET ANITHA 12/09/2021 Active Immunizations Immunization Administration Dates Next Due AMB Influenza, IIV3 (Age >=3 years)(Flu Clinic [facility]) 08/30/2011,08/27/2010 Influenza, IIV3 (Age >=3 years) 09/03/2007 Social History Tobacco Use Types Packs/Day Years Used Date Smoking Tobacco: Never Smokeless Tobacco: Never Tobacco Cessation:Counseling Given: Yes Alcohol Use Standard Drinks/Week Comments Yes 0 (1 standard drink = 0.6 oz pur e alcohol) Sex and Gender Information Value Date Recorded Sex Assigned at Not on file Legal Sex Male 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 Gender Identity Not on file Sexual Orientation Not on file Obstetrics History Last Filed Vital Signs Vital Sign Reading Time Taken Comments Blood Pressure 106/58 12/16/2021 9:12 AM WATER INSPECTOR man ual cuff Pulse 75 12/16/2021 9:12 AM WATER INSPECTOR Temperature 36.8 C (98.2 F) 07/22/2009 6:27 PM CDT Respiratory Rate 16 07/22/2009 6:27 PM CDT Oxygen Saturation 99% 12/16/2021 9:12 AM WATER INSPECTOR Inhaled Oxygen Concentration - - Weight 84.4 kg (186 lb) 12/16/2021 9:12 AM WATER INSPECTOR Height - - Body Mass Index - - Plan of Treatment Health Maintenance Due Date Last Done Comments Tdap 1993 Depression screening for age 12+ 1994 HIV for age 15-65 1997 BMI (ht and wt on same day) for age 18+ 2000 Hepatitis C screening for ag e 18-79 2000 Tetanus booster 2002 Lipids for age 35-44 2017 COVID-19 vaccine series ( season) 2024 10/13/2021, 02/26/2021, 02/05/2021 Influenza Vaccine (Season Ended) 2025 08/30/2011, 08/27/2010, 09/03/2007 Pneumococcal series for age 6-49 Aged Out No longer eligible b ased on patient's age to complete this topic Insurance ROSE MILLER Care Teams Typesetting Machine Tender Relationship Specialty Start Date End Date Pcp, No . PCP - General 12/03/15
--- OUTSIDE RECORDS SUMMARY | 2025-03-09 17:36 | XMS_ITS | Encounter Summary ---
Author Organization [facility] Address [address] [place] [id number] Care Team Providers Care Maintenance Painter Name Role Phone Found, No Pcp Primary Care Provider Unavailab le Encounter Details Date Type Department Care Team (Latest Contact Info) Description 06/12/2013 Consent for Procedure/Treatm ent [facility] Occupational and Environmental Medicine [address] [place] [id number] DRUG SCREEN BREATH ALCOHOL TEST RELEASE Social History Tobacco Use Types Packs/Day Years Used Date Smoking Tobacco: Never Assessed Sex and Gender Information Value Date Recorded Sex Assigned at Not on file Legal Sex Male 8:14 AM CDT Gender Identity Not on file Sexual Orientation Not on file documented as of this encounter Progress Notes * NURSE/ASSIST 1 OCC MED SP - 06/12/2013 12:00 AM CDT documented in this encounter Plan of Treatment Not on file documented as of this encounter Visit Diagnoses Not on filedocumented in this encounter Care Teams Maintenance Painter Relationship Specialty Start Date End Date Found, No Pcp, [address] [place] [address] PCP - General 11/28/24 documented as of this encounter
--- OUTSIDE RECORDS SUMMARY | 2025-03-09 17:36 | XMS_ITS | Clinical Summary ---
Author Organization [facility] Address [address], [place] [address] Care Team Providers Care Vending Machine Host/Hostess Name Role Phone Found, No Pcp MD Primary Care Provider Unavailab le Source Comments You are receiving this document as you are listed as the primary care provider,follow-up provider, or the patient has been referred to you for consultation.This is in compliance with the Medicare andMedicaid EHR Incentive Program,which states Providers who transition their patient to another setting of careor provider of care or refers their patient to another provider of care shouldprovide summary care record for each transition of care or referral. [facility] Allergies No known active allergies Social History Tobacco Use Types Packs/Day Years Used Date Smoking Tobacco: Never Assessed Sex and Gender Information Value Date Recorded Sex Assigned at Not on file Legal Sex Male 8:14 AM CDT Gender Identity Not on file Sexual Orientation Not on file Plan of Treatment Health Maintenance Due Date Last Done Comments Hep C Screening (Preventive Services) 1982 HIV Screening (Preventive Services) 1998 Adult Preventive Visit 2000 HepB Vaccine (1) 2001 Cholesterol 2017 COVID-19 Vaccine ( season) 2024 10/13/2021, 02/26/2021, 02/05/2021 DTaP/Tdap/Td Vaccine (8 - Tdap) 03/22/2028 03/22/2018, 01/16/2008, 05/23/1998, Additional history exists Zoster/Shingles Vaccine (1 of 2) 2032 IPV (Polio) Vaccine Completed 12/13/1988, 01/25/1983, 1982, Additional history exists Pneumococcal Vaccine Aged Out 05/14/2024 No long er eligible based on patient's age to complete this topic Influenza Vaccine Completed 10/01/2024, , 08/26/2020, Additional history exists HPV Vaccine Aged Out No longer eligi ble based on patient's age to complete this topic HepA Vaccine Aged Out No longer eligi ble based on patient's age to complete this topic Hib Vaccine Aged Out No longer eligi ble based on patient's age to complete this topic MCV4 Vaccine Aged Out No longer eligi ble based on patient's age to complete this topic Meningococcal B Vaccine Aged Out No l onger eligible based on patient's age to complete this topic Insurance [place] [id number] [address] [id number] [facility] Care Teams Vending Machine Host/Hostess Relationship Specialty Start Date End Date Found, No Pcp, [address] [facility] [place] [address] PCP - General 11/28/24
== END 2025-03-08 19:01 | disposition home or self-care (01) ==
PROVIDERS: Emergency Provider Student in an Organized Health Care Education/Training Program; PCP Internal Medicine
DX: S61.412A Laceration without foreign body of left hand, initial encounter (principal); W26.9XXA Contact with unspecified sharp object(s), initial encounter
CPT/HCPCS: 12001; 99283